=== PATIENT | male | born 1945 | race Caucasian/White ===

== ENCOUNTER 2016-07-25 07:12 | Observation (INO) | payer MEDICAID ==
[2016-07-25] VITALS (7 sets, daily range): BP systolic 150–179; BP diastolic 65–73; PULSE 45–67; RESP 18–20; Ht 157.5 cm; Wt 72.0 kg
[~2016-07-25] VITALS: Ht 157.5 cm; Wt 72.0 kg
[~2016-07-25 07:12] MED LIST: BP MEDICINE; DIABETES MED
[2016-07-25] MEDS ORDERED: METOCLOPRAMIDE 10 MG INJ IV STA (07:47)
[2016-07-25] MEDS ORDERED: SOD CHLORIDE 0.9% 500 ML IV STA (07:47)
--- NOTE | 2016-07-25 07:59 | ERA ---
ER Documentation Chief Complaint Date/Time DATE: 07/25/16 TIME: 07:58 Chief Complaint NON TRAUMATIC HEADACHE FOR 2 DAYS. NO NEURO DEF. MILD DIZZINESS AND VOMIT HPI 71-year-old male with a history of hypertension and diabetes presenting with complaints of nausea and vomiting since this morning. He has had a gradual onset , nontraumatic headache for the past 3 days. It is frontal, throbbing, and out of 10. Nothing seems to make it better or worse. Today he developed some nausea with vomiting in the morning. he also complained of dizziness. He denies any associated chest pain or shortness of breath. He denies any fever, chills, vision disturbance, neck pain, or neck stiffness. ROS All systems reviewed and are negative except as per history of present illness. Medications Home Meds Reported Medications [Diabetes Med] No Conflict Check 09/14/11 [Bp Medicine] No Conflict Check 09/14/11 Allergies Allergies: Coded Allergies: No Known Drug Allergies (Verified Allergy, 09/14/11) PMhx/Soc History of Surgery: No Anesthesia Reaction: No Hx Neurological Disorder: No Hx Respiratory Disorders: No Hx Cardiac Disorders: Yes (HTN) Hx Psychiatric Problems: No Hx Miscellaneous Medical Probl: No Hx Alcohol Use: No Hx Substance Use: No Hx Tobacco Use: No Smoking Status: Never smoker FmHx Family History: No diabetes Physical Exam Vitals Vital Signs Date Time Temp Pulse Resp B/P Pulse Ox O2 Delivery O2 Flow Rate FiO2 07/25/16 08:30 49 20 149/68 98 Room Air 07/25/16 07:18 97.9 56 20 168/63 100 Physical Exam Const: Well-appearing, mild distress secondary to pain Head: Atraumatic Eyes: Normal Conjunctiva, PERRLA, EOMI, no nystagmus ENT: Dry oral mucosa Neck: Full range of motion.. No JVD. No meningismus. Resp: Clear to auscultation bilaterally Cardio: Regular rate and rhythm, no murmurs Abd: Soft, non tender, non distended. Normal bowel sounds Skin: No petechiae or rashes Back: No midline or flank tenderness Ext: No cyanosis, or edema Neur: Awake and alert and oriented 3, cranial nerves intact, strength and sensations intact in all 4 extremities, unsteady gait, but patient and state this is normal secondary to his chronic right knee pain. Negative Kernig' s and Brudzinski's Psych: Normal Mood and Affect Result Diagram: 07/25/16 0815 07/25/16 0815 Results 24 hrs Laboratory Tests Test 07/25/16 08:15 White Blood Count 7.210^3/ul Red Blood Count 4.2010^6/ul Hemoglobin 12.0g/dl Hematocrit 36.8% Mean Corpuscular Volume 87.6fl Mean Corpuscular Hemoglobin 28.6pg Mean Corpuscular Hemoglobin Concent 32.6g/dl Red Cell Distribution Width 13.5% Platelet Count 20271^3/UL Mean Platelet Volume 11.1fl Neutrophils % 66.2% Lymphocytes % 23.6% Monocytes % 6.4% Eosinophils % 2.5% Basophils % 1.0% Nucleated Red Blood Cells % 0.0/100WBC Neutrophils # 4.810^3/ul Lymphocytes # 1.710^3/ul Monocytes # 0.510^3/ul Eosinophils # 0.210^3/ul Basophils # 0.110^3/ul Nucleated Red Blood Cells # 0.010^3/ul Prothrombin Time 13.2Sec Prothrombin Time Ratio 1.0 INR International Normalized Ratio 1.00 Activated Partial Thromboplast Time 23.5Sec Sodium Level 139mmol/L Potassium Level 3.8mmol/L Chloride Level 105mmol/L Carbon Dioxide Level 26mmol/L Anion Gap 12 Blood Urea Nitrogen 14mg/dl Creatinine 0.87mg/dl Glucose Level 208mg/dl Calcium Level 8.9mg/dl Troponin I 0.015ng/ml Current Medications Medications (Trade) Dose Ordered Sig/Jean Route PRN Reason Start Time Stop Time Status Last Admin Dose Admin Sodium Chloride (NS) 500 ml @ 500 mls/hr Q1H STAT IV 07/25/16 07:47 07/25/16 08:46 DC 07/25/16 08:30 Metoclopramide HCl (Reglan) 10 mg ONCE STAT IV 07/25/16 07:47 07/25/16 07:48 DC 07/25/16 08:30 Procedures/MDM EMERGENT LABS AND DIAGNOSTIC STUDIES: Lab Results above were reviewed and interpreted by me. CBC, BMP are unremarkable, troponin within normal limits 12-lead EKG was interpreted by Bryon Isaac MD: EKG #1: Rate/Rhythm: Sinus bradycardia at 50 bpm QRS, ST, T-waves: Biphasic T-wave in V3, T-wave inversions in V4 and V5 Impression: No arrhythmia, concern for possible anterior ischemia, no STEMI EKG #2: Rate/Rhythm: Sinus bradycardia at 50 bpm QRS, ST, T-waves: Biphasic T-wave in V3, T-wave inversions in V4 and V5 Impression: No arrhythmia, concern for possible anterior ischemia, no STEMI Radiology Results as interpreted by Radiology below were reviewed by Chante Isaac MD: CT head: IMPRESSION: 1. Atrophy. 2. Microangiopathic ischemic change. 3. Atherosclerosis. 4. Punctate calcifications bilaterally, likely due to old neurocysticercosis. 5. Otherwise unremarkable noncontrast CT scan of the brain. 6. No intracranial hemorrhage. .George Hector MD, MD Date Time Electronically viewed and signed by .George Hector MD, MD on 07/25/2016 08:10 Chest x-ray shows no acute abnormalities Initial Nursing notes reviewed. Previous Medical Records requested via the Electronic Health Record. EMERGENCY DEPARTMENT COURSE / MEDICAL DECISION MAKING: Patient is presenting with several days of headache with new onset nausea and vomiting today. His blood pressure was noted to be elevated, however I have a low suspicion for hypertensive emergency. Otherwise he is afebrile with normal neurologic exam. Reglan IV and IV fluids were given with improvement of his headache and symptoms. CT head did not show any acute abnormalities. Labs were all within normal limits. EKG was concerning for ischemia and there is no previous EKG I can compare it to. It is possible his nausea, vomiting, dizziness are due to an atypical presentation of ACS. I did a lower suspicion for aortic or carotid dissection. I also cannot rule out CVA. I have a low suspicion for acute intracranial hemorrhage. However I do not believe the patient is stable for discharge at this time and will need further workup for ACS. Accepting Care Team: Current data and ongoing care discussed. Time: Time of admission Primary Provider: Reg Consulting: none Outstanding Data: none Departure Diagnosis: Primary Impression: Headache Qualified Code: R51 - Acute nonintractable headache, unspecified headache type Additional Impressions: Nausea and vomiting Qualified Code: R11.2 - Non-intractable vomiting with nausea, unspecified vomiting type Abnormal EKG Condition: REYES Raza MD Jul 25, 2016 07:59
--- NOTE | 2016-07-25 08:10 | RADRPT ---
PROCEDURE: XR Chest. CLINICAL INDICATION: Shortness of breath. Headache. TECHNIQUE: Single frontal view. COMPARISON: None. FINDINGS: The lungs are clear. The heart size is normal. There is no pleural effusion. There is no pneumothorax. IMPRESSION: 1. Normal chest radiograph. RPTAT: QQ .Goerge Hector MD, MD Date Time Electronically viewed and signed by .George Hector MD, on 07/25/2016 08:10 .R/
--- NOTE | 2016-07-25 08:10 | RADRPT ---
PROCEDURE: CT Brain without contrast. CLINICAL INDICATION: Headache. TECHNIQUE: A CT of the brain without contrast was performed utilizing axial sections from the skul l base through the vertex. The patient was scanned without intravenous contrast enhancement. Sagitta l and coronal reformatted images were obtained using the data from the axial images. Total exam DLP is 613.20 mGy-cm. CTDIvol is 44.95 mGy. One or more of the following dose reduction techniques were used: Automated exposure control, adjustment of the mA and/or kV according to patient size, use of iterative reconstruction technique. COMPARISON: None available. FINDINGS: There is normal newberry-white matter differentiation. There is enlargement of the ventricles and subarachnoid spaces consistent with atrophy. There is decreased attenuation of the periventricular white matter consistent with microangiopathic ischemic change. There is no intracranial hemorrhage or space-occupying lesion. There are punctate calcifications pr esent in the right basal ganglia, left frontal lobe, and right parietal lobe superiorly. There is n o mass effect. There are vascular calcifications consistent with atherosclerosis. There is no skull fracture or lytic lesion. IMPRESSION: 1. Atrophy. 2. Microangiopathic ischemic change. 3. Atherosclerosis. 4. Punctate calcifications bilaterally, likely due to old neurocysticercosis. 5. Otherwise unremarkable noncontrast CT scan of the brain. 6. No intracranial hemorrhage. RPTAT: QQ .George Hector MD, Date Time Electronically viewed and signed by .George Hector MD, on 07/25/2016 08:10 .R/
[2016-07-25 08:37] LABS: ADD SCAN DIFF NO
[2016-07-25 08:39] LABS: BASOPHIL # 0.1 10^3/ul (0.0-0.1); EOSINOPHILS # 0.2 10^3/ul (0.0-0.5); EOSINOPHILS % 2.5 % (0.0-7.0); HEMATOCRIT 36.8 % (42.0-52.0); LYMPHOCYTES # 1.7 10^3/ul (0.8-2.9); LYMPHOCYTES % 23.6 % (15.0-51.0); MEAN CORPUSCULAR HEMOGLOBIN 28.6 pg (29.0-33.0); MEAN CORPUSCULAR HGB CONC 32.6 g/dl (32.0-37.0); MEAN CORPUSCULAR VOLUME 87.6 fl (82.0-101.0); MEAN PLATELET VOLUME 11.1 fl (7.4-10.4); MONOCYTE # 0.5 10^3/ul (0.3-0.9); MONOCYTES % 6.4 % (0.0-11.0); NEUTROPHIL # 4.8 10^3/ul (1.6-7.5); NEUTROPHILS % 66.2 % (39.0-77.0); PLATELET COUNT 232 10^3/UL (140-415); RED CELL DISTRIBUTION WIDTH 13.5 % (11.5-14.5); WHITE BLOOD COUNT 7.2 10^3/ul (4.8-10.8)
[2016-07-25 08:50] LABS: PARTIAL THROMBOPLASTIN TIME 23.5 Sec (25.0-35.0); PROTIME 13.2 Sec (12.2-14.2)
[2016-07-25 08:51] LABS: POTASSIUM 3.8 mmol/L (3.5-5.1)
[2016-07-25 08:54] LABS: CREATININE 0.87 mg/dl (0.61-1.24)
[2016-07-25 08:55] LABS: CALCIUM 8.9 mg/dl (8.4-10.2)
[2016-07-25 09:04] LABS: TROPONIN-I 0.015 ng/ml (0.00-0.12)
[2016-07-25] MEDS ORDERED: ATOR20TA38 PO (10:30)
[2016-07-25] MEDS ORDERED: SITA100T8 PO (10:30)
[2016-07-25] MEDS ORDERED: ACETAMINOPHEN 325 MG TAB PO PRN ×2 (10:30→11:30)
[2016-07-25] MEDS ORDERED: ONDANSETRON 4 MG INJ IV PRN ×2 (10:30→11:30)
[2016-07-25] MEDS ORDERED: METO-407 PO (10:31)
[2016-07-25] MEDS ORDERED: GLIP-95 PO (10:31)
[2016-07-25] MEDS ORDERED: ASPI-664 PO (10:31)
[2016-07-25] MEDS ORDERED: METF1000 PO (10:31)
[2016-07-25] MEDS ORDERED: LISI40TA9 PO (10:32)
[2016-07-25] MEDS ORDERED: METF-406 PO (11:18)
[2016-07-25] MEDS ORDERED: MAGNESIUM HYDROXIDE 30ML CUP PO PRN (11:30)
[2016-07-25] MEDS ORDERED: LORAZEPAM 2 MG INJ IV PRN (11:30)
[2016-07-25] MEDS ORDERED: NACL 0.9% 3 ML SYG IV SCH (11:30)
[2016-07-25] MEDS ORDERED: BISACODYL (EC) 5 MG TAB PO PRN (11:30)
[2016-07-25] MEDS ORDERED: HYDROCODONE/APAP (5/325) TAB PO PRN (11:30)
[2016-07-25] MEDS ORDERED: hydrALAzine 20 MG INJ IV PRN (11:30)
[2016-07-25] MEDS ORDERED: morphine 2 MG INJ IV PRN (11:30)
[2016-07-25] MEDS ORDERED: GLUCAGON 1 MG INJ IM PRN (12:00)
[2016-07-25] MEDS ORDERED: GLUCOSE GEL 15 GRAM TUBE PO PRN ×2 (12:00)
[2016-07-25] MEDS ORDERED: DEXTROSE 50% 50 ML SYRINGE IV PRN ×2 (12:00)
[2016-07-25] MEDS ORDERED: GLUCOSE GEL 15 GRAM TUBE BUCCAL PRN (12:00)
[2016-07-25 12:02] LABS: CK-MB 4.52 ng/ml (0.0-2.4)
--- NOTE | 2016-07-25 12:22 | RADRPT ---
PROCEDURE: Carotid ultrasound CLINICAL INDICATION: Headaches, carotid bruits TECHNIQUE: Kenyon scale, color doppler, spectral doppler ultrasound of the bilateral carotid and sandhya tebral arteries. This study indirectly references the measurement of the distal ICA diameter as the denominator for s tenosis measurement. Validated velocity measurements with angiographic measurements, velocity criter ia are extrapolated from diameter data as defined by: *Cartoid artery stenosis: kenyon-scale and Doppl er US diagnosis. Society of Radiologists in Ultrasound Consensus Conference. Radiology 2003; 229: 34 0-346. SRU Consensus Conference Criteria for the Diagnosis of Carotid Artery Stenosis* Degree of Stenosis, % ICA PSV, cm/sec Plaque Estimate, % ICA/CCA PSV Ratio Normal <125 None <2.0 <50 <125 <50 <2.0 50 69 125-230 >50 2.0-4.0 >70 but less than near occlusion >230 >50 <4.0 Near occlusion High, low, or undetectable Visible Variable Total occlusion Undetectable Visible, no detectable lumen Not applicable COMPARISON: No prior studies are available for comparison. FINDINGS: Location Right CCA54 cm/sec Prox ICA 61 cm/sec Mid ICA56 cm/sec Dist ICA50 cm/sec ECA85 cm/sec ICA/CCA1.1 Left CCA56 cm/sec Prox ICA 60 cm/sec Mid ICA71 cm/sec Dist ICA69 cm/sec ECA44 cm/sec ICA/CCA1.3 Plaque burden: A small amount of plaque is present within the visualized portions of both internal c arotid arteries however there is no evidence of flow acceleration to suggest a hemodynamically signi ficant stenosis. Antegrade flow is seen within the vertebral arteries bilaterally. IMPRESSION: A small amount of plaque is present within the visualized portions of both internal carotid arteries however there is no evidence of flow acceleration to suggest a hemodynamically significant stenosis . RPTAT: AADD .Erickson Chatman MD, Date Time Electronically viewed and signed by .Erickson Chatman MD, MD on 07/25/2016 12:22 .B/
--- NOTE | 2016-07-25 12:45 | HP ---
DATE OF ADMISSION: 07/25/2016 REASON FOR ADMISSION: Nontraumatic headache for 2 days. Mild dizziness and vomiting. CONSULTANTS: Dr. Casper Maldonado, Cardiology. HISTORY OF PRESENT ILLNESS: This is a 71-year-old male with history of essential hypertension, type 2 diabetes mellitus, and dyslipidemia who presented to the emergency room with vague complaints of mild dizziness associated nausea, vomiting and non-traumatic headache that has been going on for the past 2 days. The patient denied any neurologic deficits. The patient verbalized that the headache is frontal and throbbing and rated 10/10. The patient denied any trauma. The patient developed some nausea and vomiting in the morning with some dizziness. He denied any fevers, chills, visual disturbances, neck pain, neck disturbances, abdominal pain, diarrhea, hematochezia or dysuria. In the emergency room, the patient's lab work was negative other than the patient had some anemia. The patient's serum sodium level and electrolyte levels were within normal limits. In the emergency room, the patient's brain CT scan was negative for any acute intracranial findings. However, it showed punctate calcifications bilaterally, likely due to old neurocysticercosis. The patient's chest x-ray was negative for any acute cardiopulmonary findings. The patient's 12-lead EKG showed sinus bradycardia and biphasic T-wave in V3 and T-wave inversions in V4 and V5. The patient was treated with Reglan and IV fluids in the emergency room. PAST MEDICAL HISTORY: 1. Essential hypertension. 2. Type 2 diabetes mellitus. 3. Dyslipidemia. PAST SURGICAL HISTORY: Denies. HOME MEDICATIONS: 1. Lipitor 20 mg p.o. at bedtime. 2. Aspirin. 3. Lisinopril 40 mg p.o. daily. 4. Lopressor 100 mg p.o. b.i.d. 5. Aspirin 81 mg p.o. daily. 6. Glipizide 10 mg p.o. before breakfast. 7. Metformin 1000 mg p.o. b.i.d. 8. Sitagliptin 100 mg p.o. daily. ALLERGIES: NO KNOWN DRUG ALLERGIES. SOCIAL HISTORY: The patient lives at home with his family. Denies any recent history of tobacco, alcohol or illicit drug use. REVIEW OF SYSTEMS: A 12-point review of systems were made and the review of systems were negative other than what is mentioned in history of present illness. PHYSICAL EXAMINATION: VITAL SIGNS: Temperature 97.9, pulse rate 49, respiratory rate 20, blood pressure 149/68, oxygen saturation 98% on room air. GENERAL: This is an elderly male lying in bed in no apparent distress. HEENT: Head normocephalic and atraumatic. Eyes: Anicteric sclerae. Conjunctivae clear. ENT: Nasal septum is midline. Oral mucosa is dry. NECK: Supple. No JVD noticed. RESPIRATORY: Bilaterally clear to auscultation. No adventitious breath sounds heard. No use of accessory muscles of respiration. CARDIAC: Regular rate and rhythm. S1, S2 hear. GASTROINTESTINAL: Abdomen soft, nontender and nondistended. Bowel sounds positive in all 4 quadrants. GENITOURINARY: Deferred. EXTREMITIES: No cyanosis, no clubbing, no edema. Peripheral pulses are palpable. NEUROLOGIC: The patient is awake, alert and oriented. Cranial nerves are grossly intact. LABORATORY AND DIAGNOSTIC DATA: WBC 7.2, hemoglobin 12.0, hematocrit 36.0, platelet count 232. Sodium 139, potassium 3.8, chloride 105, carbon dioxide 26 , anion gap 12, BUN 40, creatinine 0.8, glucose 128 and calcium 8.9. Troponin 0.015. Chest x-ray. Normal chest radiograph. Brain CT scan. Atrophy. Microangiopathic ischemic change. Atherosclerosis dependent calcifications bilaterally, likely due to old neurocysticercosis, otherwise unremarkable noncontrast CT scan of the brain. No intracranial hemorrhage. IMPRESSION: This is a 71-year-old male with comorbidities including essential hypertension, dyslipidemia and type 2 diabetes mellitus who came to the emergency room with vague complaints, was found to have abnormal EKG and will be admitted here for further treatment and evaluation. ASSESSMENT AND PLAN: 1. Cephalgia with associated dizziness. Etiology unclear. The patient's brain CT scan negative for any acute findings. The patient will be provided with adequate pain control. The patient will be evaluated for any underlying carotid artery stenosis. 2. Abnormal EKG. Serial troponins will be obtained to evaluate for any underlying coronary syndrome. A 2D echocardiogram will be obtained to evaluate the left ventricular ejection fraction to evaluate for any wall motion abnormalities. A Cardiology consult will be obtained. The patient will be started on aspirin. 3. Essential hypertension. The patient will be maintained on antihypertensives. However, beta blockers will be avoided because of underlying bradycardia. 4. Type 2 diabetes mellitus. The patient will be started on sliding scale insulin along with premeal insulin and Lantus insulin. A hemoglobin A1c will be obtained to evaluate the blood glucose control over the past 3 months. 5. Dyslipidemia. A fasting lipid panel will be obtained. The patient will be resumed on statins. Plan. The patient will be admitted to inpatient telemetry floor. The patient will be started on a carbohydrate controlled low cholesterol diet. The patient will be started on DVT prophylaxis and gastrointestinal prophylaxis. Activities will be as tolerated. The rest of the patient's management will be based on the clinical course, the results of diagnostic studies, and input from consultants. Based on the patient's clinical presentation, he most probably requires at least one midnight's stay for further management and the rest of his clinical presentation. The case and management of this patient was fully discussed with Dr. Hidalgo. LIVIA HIDALGO MD, AM/MADDI Conf#: [id number] DID#: [id number] MTDMark
[2016-07-25] MEDS: INSULIN ASPART [NOVOLOG] 3 ML PEN SC SCH ×5 (13:55→21:00)
--- NOTE | 2016-07-25 15:50 | RADRPT ---
Echocardiogram Report Patient Name: LEROY GRIMM Gender: Male Date: 1945 Study Date: 25-Jul-2016 Director Of Knowledge Management: [facility] Location: [id number] Ref. Physician: LIVIA AKINS Quality: Adequate Procedures: Transthoracic echocardiogram with complete 2D, M-Mode, and doppler examination. Indications: Evaluate Left Ventricular function. 2D/M Mode Doppler Measurement Value Normal Ranges Measurement Value Normal Ranges LVIDd 2D 4.8 3.5 - 5.6 cm AV Peak Kvng 1.0 m/sec LVIDs 2D 3.0 2.1 - 4.1 cm AV Peak PG 4.2 mmHg LVPWd 2D 1.0 0.6 - 1.1 cm LVOT Peak Kvng 0.7 m/sec IVSd 2D 1.0 0.6 - 1.1 cm LVOT Peak PG 1.7 mmHg AoR Diam 2D 3.1 2.0 - 3.7 cm MV E Peak Kvng 0.8 m/sec EDV 2D 105.3 cm3 MV A Peak Kvng 0.3 m/sec ESV 2D 26.3 cm3 MV E/A 2.8 MV Decel Time 234 msec MV Decel Peach 3 MV E/A 2.8 TR Peak Kvng 2.2 m/sec TR Peak PG 20.1 mmHg Findings Left Ventricle: Normal left ventricular systolic function. Normal left ventricular cavity size. Normal left ventricular wall thickness. Ejection fraction is visually estimated at 60 %. Abnormal Diastolic Function. Right Ventricle: Normal right ventricular size. Normal right ventricular systolic function. Left Atrium: Upper limit of normal left atrial size. Right Atrium: Right atrium at upper limits of normal. RA Pressure=3. Mitral Valve: Mitral valve leaflets appear mildly thickened. Mild mitral annular calcification. Mild mitral valve regurgitation. Aortic Valve: Trace aortic valve regurgitation. Tricuspid Valve: Tricuspid valve not well visualized. Estimated peak PA systolic pressure 24 mmHg. There is mild tricuspid regurgitation. Pulmonic Valve: There is trace pulmonic regurgitation. Pericardium: Normal pericardium with no significant pericardial effusion. Aorta: Normal aortic root. IVC: Normal size and normal respiratory collapse consistent with normal right atrial pressure. Conclusions 1.Normal left ventricular systolic function. Normal left ventricular cavity size. Normal left ventricular wall thickness. Ejection fraction is visually estimated at 60 %. Abnormal Diastolic Function. 2.Mitral valve leaflets appear mildly thickened. Mild mitral annular calcification. Mild mitral valve regurgitation. 3.Trace aortic valve regurgitation. 4.Tricuspid valve not well visualized. Estimated peak PA systolic pressure 24 mmHg. There is mild tricuspid regurgitation. Electronically Signed By: Casper Maldonado 25-Jul-2016 15:50:06 -0700 Patient Name: LEROY GRIMM Study Date: 25-Jul-2016 [id number]
[2016-07-25] MEDS: LABETALOL 200 MG TAB PO SCH ×2 (17:25→20:42)
[2016-07-25 17:58] LABS: CREATINE KINASE 235 IU/L (23-200)
[2016-07-25 18:13] LABS: TROPONIN-I < 0.012 ng/ml (0.00-0.12)
[2016-07-25] MEDS ORDERED: INSULIN GLARGINE [LANtus] 3 ML PEN SC SCH (20:00)
--- NOTE | 2016-07-25 20:36 | CONS ---
DATE OF ADMISSION: 07/25/2016 DATE OF CONSULTATION: 07/25/2016 REASON FOR CONSULTATION: Abnormal EKG. CHIEF COMPLAINT: Headache, dizziness. HISTORY OF PRESENT ILLNESS: Thank you for this referral. History obtained from the patient, jacque lui with his family, review of the chart, discussion with physicians. This is a 71-year-old Hispan gentleman with diabetes, hypertension, dyslipidemia who came to the ER with above complaint. The patient denies any chest pain or pressure to me. He said that he has been dizzy and has had headac he. He has not checked his blood pressure at home. His EKG was markedly abnormal with T-wave inver sania in inferolateral lead, which we were kindly asked to evaluate and treat. PAST MEDICAL HISTORY: History of hypertension, diabetes, dyslipidemia. SURGICAL HISTORY: None. MEDICATIONS AT HOME: 1. Lipitor. 2. Aspirin. 3. Lisinopril. 4. Lopressor. 5. Glipizide. 6. Metformin. ALLERGIES: NO REPORTED ALLERGIES. SOCIAL HISTORY: The patient lives with the family. Denies any tobacco or alcohol abuse. REVIEW OF SYSTEMS: As above mentioned. PHYSICAL EXAMINATION: VITAL SIGNS: Temperature 98, heart rate of 50, blood pressure 179/73, respiration rate of 20, satur ating 98%. HEENT: Normocephalic, atraumatic. Pupils are equal. CARDIOVASCULAR: Regular rate and rhythm, systolic murmur. PULMONARY: With no wheezes or rhonchi. GASTROINTESTINAL: Soft, nontender. EXTREMITIES: No clubbing, cyanosis, or edema. NEUROLOGIC: Awake and alert. PSYCHIATRIC: Calm, pleasant. LABORATORY DATA: EKG shows sinus bradycardia with heart rate of 50, T-wave inversion in inferolater al leads consistent with anterolateral ischemia. CK is 259 with MB fraction of 4.5. TSH is 2.67. Sodium 138, potassium 3.8, BUN of 14, creatinine 0.87, glucose of 208. Chest x-ray shows normal mindy st. ASSESSMENT AND PLAN: 1. Abnormal electrocardiogram, probably secondary to hypertensive heart disease. 2. Headache, dizziness. Follow up with internal medicine. 3. Diabetes. 4. Hypertension, poorly controlled 5. . Sinus bradycardia on metoprolol. RECOMMENDATIONS: Metoprolol has been discontinued due to sinus bradycardia. I will instead start t he patient on labetalol. Also add nifedipine to his regimen to control the heart rate better. ____ will be continued. Cardiac enzymes will be repeated to rule out acute coronary syndrome. I think this patient has no cardiac symptoms. Recommend risk factor modification and monitoring. Dictated By: LEANN GRIFFIN MD AV/MADDI Conf#: [id number] DID#: [id number] CC: ANASTACIO HIDALGO MD;*EndCC*
[2016-07-25] MEDS: FAMOTIDINE 20 MG TAB PO SCH (20:41)
[2016-07-25] MEDS: NIFEdipine (XL) 30 MG TAB PO SCH (20:42)
[2016-07-25] MEDS ORDERED: ATORVASTATIN 20 MG TAB PO SCH (21:00)
[2016-07-26] VITALS (10 sets, daily range): BP systolic 112–149; BP diastolic 53–75; PULSE 54–64; RESP 18–19
[2016-07-26 07:52] LABS: ADD SCAN DIFF NO
[2016-07-26 08:00] LABS: BASOPHIL # 0.1 10^3/ul (0.0-0.1); BASOPHILS % 0.6 % (0.0-2.0); EOSINOPHILS # 0.1 10^3/ul (0.0-0.5); EOSINOPHILS % 1.3 % (0.0-7.0); HEMATOCRIT 34.1 % (42.0-52.0); LYMPHOCYTES % 25.3 % (15.0-51.0); MEAN CORPUSCULAR HEMOGLOBIN 28.1 pg (29.0-33.0); MEAN CORPUSCULAR HGB CONC 32.3 g/dl (32.0-37.0); MEAN CORPUSCULAR VOLUME 87.2 fl (82.0-101.0); MEAN PLATELET VOLUME 11.4 fl (7.4-10.4); MONOCYTE # 0.5 10^3/ul (0.3-0.9); MONOCYTES % 6.1 % (0.0-11.0); NEUTROPHIL # 5.3 10^3/ul (1.6-7.5); NEUTROPHILS % 66.4 % (39.0-77.0); PLATELET COUNT 222 10^3/UL (140-415); RED BLOOD COUNT 3.91 10^6/ul (4.70-6.10); RED CELL DISTRIBUTION WIDTH 13.7 % (11.5-14.5)
[2016-07-26] MEDS: FAMOTIDINE 20 MG TAB PO SCH (08:12)
[2016-07-26] MEDS: NIFEdipine (XL) 30 MG TAB PO SCH (08:12)
[2016-07-26] MEDS: LABETALOL 200 MG TAB PO SCH (08:12)
[2016-07-26] MEDS: INSULIN ASPART [NOVOLOG] 3 ML PEN SC SCH ×6 (08:16→17:55)
[2016-07-26 08:17] LABS: ALBUMIN 3.2 g/dl (3.3-4.9); ALBUMIN/GLOBULIN RATIO 1.18; BILIRUBIN,INDIRECT 0.6 mg/dl (0-1.1); BILIRUBIN,TOTAL 0.6 mg/dl (0.2-1.3); CALCIUM 8.5 mg/dl (8.4-10.2); CREATININE 0.92 mg/dl (0.61-1.24); POTASSIUM 3.9 mmol/L (3.5-5.1); TOTAL PROTEIN 5.9 g/dl (6.1-8.1)
[2016-07-26 08:21] LABS: CHOL/HDL RATIO 6.3 RATIO; MAGNESIUM 1.7 mg/dl (1.7-2.5); PHOSPHORUS 4.6 mg/dl (2.5-4.9)
[2016-07-26 08:28] LABS: TROPONIN-I 0.015 ng/ml (0.00-0.12)
[2016-07-26] MEDS ORDERED: ENOXAPARIN 40 MG/0.4 ML SYG SC SCH (09:00)
[2016-07-26] MEDS ORDERED: ASPIRIN 81 MG TAB PO SCH (09:00)
[2016-07-26] MEDS ORDERED: LISINOPRIL 20 MG TAB PO SCH (09:00)
[2016-07-26] MEDS ORDERED: LABE200T25 PO (15:14)
[2016-07-26] MEDS ORDERED: NIFE30TA2 PO (15:14)
--- NOTE | 2016-07-26 15:19 | PDOCDIS ---
Discharge Instructions CONDITION Patient Condition: Stable HOME CARE INSTRUCTIONS: Diet Instructions: Low Fat /Cholesterol ACTIVITY: Activity Restrictions: Slowly Increase Activity FOLLOW UP/APPOINTMENTS Appointments follow-up with primary care Doctor OTHER ORDERS: Other Orders: Call 911 and go to the nearest ER if you have severe headache, abdominal pain, vomiting, fever, chills, chest pain and shortness of breath MANASA HANSON MD Jul 26, 2016 15:19
--- NOTE | 2016-07-26 16:57 | PN ---
DATE: 07/26/2016 CARDIOLOGY FOLLOWUP SUBJECTIVE: The patient discussed with the staff. Rhythm strip reviewed. Patient remains in sinus rhythm. No chest pain or pressure. The patient's headache has significantly improved. MEDICATIONS: Reviewed. PHYSICAL EXAMINATION: VITAL SIGNS: Temperature 97.9, heart rate of 58, blood pressure 133/75, respiratory rate of 19. HEENT: Normocephalic, atraumatic. No acute distress. Pupils are equal. CARDIOVASCULAR: Regular rate and rhythm. PULMONARY: With no wheezes or rhonchi. GASTROINTESTINAL: Soft, nontender. EXTREMITIES: Trivial edema. NEUROLOGIC: Awake, responds appropriately. PSYCHIATRIC: Appears to be calm and pleasant. LABORATORY: WBC of 18, hemoglobin ____, platelets of 222. Sodium 136, potassium 3.9, BUN of 18, cr eatinine 0.92, glucose 160. Echocardiogram shows ejection fraction of 60%. ASSESSMENT AND PLAN: 1. Abnormal EKG, probably related to hypertensive heart disease. 2. Hypertension. 3. Headache and dizziness have remained stable, improved. 4. Diabetes. 8. Sinus bradycardia on Toprol, currently stable on the current regimen. RECOMMENDATIONS: We will continue with the current ____medication. Importance of compliance with t he medication was explained to the patient. Dictated By: LEANN BATEMAN/MADDI Conf#: [id number] DID#: [id number]
== END 2016-07-26 17:53 | disposition home or self-care (01) ==
LOC: E/R 07:12 → TEL 10:23
PROVIDERS: ADMIT Family Medicine; ATTEND Family Medicine
DX: R51 Headache (principal); R42 Dizziness and giddiness; R94.31 Abnormal electrocardiogram [ECG] [EKG]; I10 Essential (primary) hypertension; E11.9 Type 2 diabetes mellitus without complications; E78.5 Hyperlipidemia, unspecified; R00.1 Bradycardia, unspecified; Z79.82 Long term (current) use of aspirin; Z79.84 Long term (current) use of oral hypoglycemic drugs
CPT/HCPCS: 36415; 70450; 71010; 80048; 80053; 80061; 82550; 82553; 82652; 82962; 83036; 83735; 84100; 84439; 84443; 84484; 85025; 85610; 85730; 93005; 93306; 93880; 96372; 96374; 96375; J0360; J1650; J1815; J2765; J7040; Z7500; Z7502; Z7610; G0378

== ENCOUNTER 2017-09-30 18:00 | Emergency (ER) | END 2017-09-30 23:46 | disposition home or self-care (01) ==